=== PATIENT | male | born 1945 | race Caucasian/White ===

== ENCOUNTER 2017-06-05 20:23 | Emergency (ER) | payer OTHER ==
[~2017-06-05] VITALS: Ht 188 cm; Wt 100.0 kg
[2017-06-05] MEDS ORDERED: EYE DROPS (20:50)
[2017-06-05] MEDS ORDERED: RAMIPRIL2.5 MG PO (20:50)
[2017-06-05] MEDS ORDERED: TESSALON PER100 MG PO (20:52)
[2017-06-05] MEDS ORDERED: ZPAK PO (20:52)
[2017-06-05 21:25] LABS: HEMATOCRIT 40.1 % (39.0-50.0); HEMOGLOBIN 13.3 g/dl (14.0-18.0); IMMATURE GRANULOCYTES 0.5 % (0.0-1.0); MEAN CELL VOLUME 92.6 fL CALC (80.0-100.0); MEAN CORPUSCULAR HGB 30.7 pG CALC (26.0-32.0); MEAN CORPUSCULAR HGB CONC 33.2 g/L CALC (32.0-36.0); NEUT# 4.94 thou/uL (1.82-7.42); RED BLOOD COUNT 4.33 mill/uL (4.70-6.10); RED CELL DISTRI WIDTH 14.4 % (11.5-15.5)
[2017-06-05 21:37] LABS: ALBUMIN 4.7 g/dL (3.2-5.0); ALKALINE PHOSPHATASE 68 u/l (38-126); ANION GAP 20 (6-22 (CALC)); BILIRUBIN, TOTAL 0.5 mg/dL (0.0-1.4); BUN 16 mg/dL (8-23); BUN/CREATININE RATIO 18 (12-20 (CALC)); CALCIUM 9.8 mg/dL (8.4-10.2); CARBON DIOXIDE 21 mmol/l (22-30); CHLORIDE 105 mmol/l (95-108); CREATININE 0.9 mg/dL (0.7-1.3); GFR > 60 ML/MIN (>=60 (CALC)); GFR FOR AFR.AMER. > 60 ML/MIN (>=60 (CALC)); GLUCOSE 129 mg/dL (82-115); POTASSIUM 4.2 mmol/l (3.5-5.1); SGOT/AST 26 u/l (19-48); SGPT/ALT 29 u/l (11-66); SODIUM 142 mmol/l (137-146); TOTAL PROTEIN 7.8 g/dL (6.3-8.2)
[2017-06-05 21:44] LABS: INTERNATIONAL NORMALIZED RATIO 1.1 RATIO (0.7-1.3); PROTHROMBIN TIME 12.1 SECONDS (9.0-12.5)
[2017-06-05] MEDS ORDERED: ROBITUSSIN AC10 ML PO (22:44)
[2017-06-05] MEDS ORDERED: LORTAB 1010 MG PO (22:44)
[2017-06-05 23:15] VITALS: BP 144/79
== END 2017-06-05 23:15 | disposition home or self-care (01) | DRG 151 ==
LOC: ED 20:23
PROVIDERS: Emergency Medicine
PROC: 2Y41X5Z Packing of Nasal Region using Packing Material (ICD-10-PCS; principal; 2017-06-05)
DX: R04.0 Epistaxis (principal)

== ENCOUNTER 2017-06-08 12:35 | Emergency (ER) | payer OTHER ==
[~2017-06-08] VITALS: Ht 188 cm; Wt 100.0 kg
[~2017-06-08 12:35] MED LIST: EYE DROPS; LORTAB 1010 MG PO; RAMIPRIL2.5 MG PO; ROBITUSSIN AC10 ML PO; TESSALON PER100 MG PO; ZPAK PO
[2017-06-08 12:46] VITALS: BP 179/98
== END 2017-06-08 13:17 | disposition home or self-care (01) | DRG 951 ==
LOC: ED 12:35
DX: Z48.00 Encounter for change or removal of nonsurgical wound dressing (principal)